=== PATIENT | female | born 1970 | race American Indian/Alaskan Native ===

== ENCOUNTER 2018-01-17 10:23 | Day surgery (SDC) | payer OTHER ==
[2018-01-17] MEDS ORDERED: ceFAZolin 1 gm in NS 0 GM/0 ML BAG IVPB ONE (10:39)
[2018-01-17] MEDS ORDERED: Lidocaine Hydrochloride 10 ML INJ ONE (10:39)
[2018-01-17] MEDS ORDERED: Dexamethasone 4 mg/1 ml ONE (10:39)
[2018-01-17] MEDS ORDERED: Bupivacaine HCl 0.5% PF (30 ml) Inj ONE (10:39)
[2018-01-17] MEDS ORDERED: Triamcinolone Acetonide 40 mg/mL Inj ONE (10:40)
[2018-01-17] MEDS ORDERED: Midazolam 2 MG/2 ML VIAL ONE (11:19)
[2018-01-17] MEDS ORDERED: Propofol 10 mg/ml Inj (20 ML) ONE (11:19)
[2018-01-17] MEDS ORDERED: Lidocaine Hydrochloride 5 ML INJ ONE (11:20)
[2018-01-17] MEDS ORDERED: Clindamycin 600mg/50ml NS 1,200 MG/100 ML BAG IVPB ONE (11:21)
[2018-01-17] MEDS ORDERED: HYDROmorphone 0.5 mg/0.5 ml ISec IVP PRN (11:39)
--- NOTE | 2018-01-17 12:12 | PCM.SURG1 ---
Surgeon's Initial Post Op Note - Surgeon's Notes Surgeon: Dr. Kramer Ear Machine Operator: Dr. Weber Type of Anesthesia: IV Sedation, Local Anesthesia Administered By: Dr. Roche Pre-Operative Diagnosis: Left foot plantar fasciitis Operative Findings: nylon 3-0 Post-Operative Diagnosis: same Operation Performed: left foot plantar fascietomy Specimen/Specimens Removed: none Estimated Blood Loss: EBL {In ML}: 2 Blood Products Given: N/A Drains Used: No Drains Post-Op Condition: Good Date of Surgery/Procedure: 01/17/18 Time of Surgery/Procedure: 12:12
[2018-01-17] MEDS ORDERED: Oxycodone/Acetaminophen 5/325 mg Tab PO PRN ×2 (12:13)
[2018-01-17 13:30] VITALS: O2SAT 100
[2018-01-17 13:33] VITALS: RESP 18
[2018-01-17 15:07] VITALS: BP 112/80; PULSE 70; TEMP 98
--- NOTE | 2018-01-21 14:19 | PCM.OP ---
Operative Report - Operative Report Date of Surgery/Procedure: 01/17/18 Time of Surgery/Procedure: 10:50 Surgeon: Dr. Kramer Electric Plater: Dr. Moe Weber Anesthesia/Sedation: IV sedation and local Pre-Operative Diagnosis: LEFT foot painful plantar fasciitis Post-Operative Diagnosis: same Indication for Surgery: Indications: The patient is a 47 year-old female with the above diagnoses. The patient has exhausted conservative treatment at this time and now requests surgical intervention. The patient signed the consent after careful explanation of risks, benefits, complication and alternatives for surgical procedure. No guarantees were given nor implied. 1 gram of ancef IV were given to the pt hour prior to the procedure. NPO status was confirmed prior to taking pt to the OR. Operative Findings: Preparation: The patient was brought to the operating room and placed on the operating room table in supine position. A well-padded pneumatic ankle tourniquet was placed to the patient's LEFT ankle in a supramalleolar position. After induction of General anesthesia the LEFT foot was then prepped and draped in usual sterile manner. Esmarch was utilized to exsanguinate the patient's LEFT foot. Pneumatic ankle tourniquet was then inflated to 250 mmHg and procedure began. Procedure/Operation Description: Procedure: LEFT foot endoscopic plantar fasciotomy. Procedure: Attention was then directed to the medial aspect of the LEFT heel, where the position of plantar fascia insertion was located approximately 5 cm from the back of the heel and 2cm above from plantar aspect of foot. At this location, a vertical incision of approximately 1cm was made using #15 blade. Next, utilizing a Metzenbaum and a freer elevator, the soft tissue and its attachments to plantar fascia were from the fascia with swooping motion. Next, the trocar with a sleeve was placed in the medial portal and the another 1 cm vertical incision was made to the lateral aspect of the heel where The tip of the trocar was protruding. Trocar was removed and Q- tips were used to clean out the sleeve. Next, under endoscopy, the plantar fascia was clearly visible and the medial band was cut utilizing the instrument from the EPF set. Images were taken of the resection. Muscle belly was noted and not touched. The foot was then placed in various ranges of motion noting that appropriate motion was achieved and the medial band was clearly released. The wound was then flushed with copious amounts of sterile normal saline. The skin was closed with #4-0 nylon. 20 ml of 0.5% Marcaine plain and 1.5 ml of Kenolog 40mg were injected to the LEFT heel. Postoperative bandages included betadine soaked adaptic DSD and an Price bandage. . The attending was present during the entire case. Estimated Blood Loss: 5 mL Complications: none Discharge & Condition: Postoperative Condition: The patient tolerated the anesthesia and procedure well and was escorted to the recovery room with vital signs stable and neurovascular status intact to the Left foot. This patient will follow up with Dr. Kramer.
== END 2018-01-17 15:51 | disposition home or self-care (01) ==
LOC: C.SDS 10:23
PROVIDERS: ATTEND Podiatrist Foot & Ankle Surgery
DX: M72.2 Plantar fascial fibromatosis (principal)
CPT/HCPCS: 29893; 97116; 97161; G8978; G8979; G8980; J1100; J1170; J2250; J2405; J2704; J3010; J3301